=== PATIENT | male | born 1930 | race Caucasian/White ===

== ENCOUNTER → 2019-08-11 | Outpatient (CLI) | payer MEDICARE, BC ==
--- NOTE | 2019-08-11 14:50 | Diagnostic Imaging Report ---
PROCEDURE: CT abdomen and pelvis without contrast. TECHNIQUE: Multiple contiguous axial images were obtained through the abdomen and pelvis without the use of intravenous contrast. Auto Exposure Controls were utilized during the CT exam to meet ALARA standards for radiation dose reduction. INDICATION: Recurrent urinary tract infections and right-sided pain. COMPARISON: No prior studies available for comparison. FINDINGS: The lung bases are clear. Liver contains some circumscribed low densities in the left lobe too small to accurately characterize. Largest 11 mm in size and most likely represent cysts. Gallbladder is unremarkable. No biliary ductal dilatation is seen. The pancreas and spleen are unremarkable. No adrenal mass is detected. Kidneys contain cortical low densities most suggestive of cysts. The largest is on the left in lower pole measuring 7.2 cm. There is a nonobstructing calculus in the left kidney measuring 6 mm. There is some prominence to the left ureter and left renal collecting system but no definite ureteral calculus is seen. No bladder calculus is identified. Right-sided urinary tracts are unremarkable. Aorta is calcified but nonaneurysmal. Bowel loops appear nonobstructed. There is diverticulosis of the sigmoid but no evidence of acute diverticulitis. The bladder is unremarkable. 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 No abdominal or pelvic lymphadenopathy is detected. IMPRESSION: 1. Hepatic and bilateral renal cysts. There is also a 6 mm nonobstructing left renal calculus. 2. There is some mild prominence of the left renal collecting system and left ureter but no definite ureteral calculus is seen. 3. Uncomplicated diverticulosis. Dictated by: Dictated on workstation # [id number]
== END ==
LOC: RAD 14:16
PROVIDERS: ATTEND Internal Medicine
DX: N30.01 Acute cystitis with hematuria (principal); N28.1 Cyst of kidney, acquired; N20.0 Calculus of kidney; K76.89 Other specified diseases of liver; K57.30 Diverticulosis of large intestine without perforation or abscess without bleeding
CPT/HCPCS: 74176